=== PATIENT | male | born 1990 | race Caucasian/White ===

== ENCOUNTER → 2025-03-08 12:41 | Outpatient (CLI) | payer OTHER, SELFPAY ==
--- NOTE | 2025-03-08 12:45 | DI.MRI.S_ITS ---
PROCEDURE: MR KNEE LT WO CON INDICATIONS: injury lower leg left TECHNIQUE: Noncontrast sagittal PD fast spin echo and T2 fast spin echo with fat saturation, sagittal 3-D FLASH with fat saturation; coronal T1 spin echo and PD fast spin echo with fat saturation, and axial PD fast spin echo with fat saturation through the knee. COMPARISON: None. FINDINGS: Image quality: Excellent. Some images are mildly limited by motion, pulsation artifacts, decreased [id number]. Medial structures: Markedly abnormal appearance medially with moderate to severe diffuse soft tissue edema surrounding the medial collateral ligament and distal pes anserine tendons. The distal attachment of the medial collateral ligament is not clearly defined and may be torn given the amount of edema within and surrounding the medial collateral ligament, grade 2 possible grade 3 injury. Associated edema of the posterior oblique ligament and in the distal semimembranosus tendon injury/strain without retraction. Suspicion of posterior medial meniscocapsular separation. Menisci: The medial and lateral menisci demonstrate normal morphology and internal signal without focal tear. Cruciate ligaments: The anterior and posterior cruciate ligaments appear intact. Lateral structures: The lateral collateral ligament, long and short heads of the biceps femoris tendon appear intact. The popliteus tendon appears normal. Iliotibial band appears normal. Anterior structures: The quadriceps and patellar tendons appear intact. Patellar alignment is normal. No femoral trochlear dysplasia or ventral trochlear prominence. No edema in the infrapatellar fat pad. Bones and cartilage: Moderate low T1 high T2 signal in the lateral aspect of the lateral femoral condyle suspicious for bone contusion. No gross fracture line or dislocation. The cartilage of the medial and lateral femorotibial compartments, as well as the patellofemoral compartment, appears normal in thickness. Joint space: Mild knee joint effusion. No popliteal cyst. IMPRESSION: Abnormal appearance medially with edema surrounding the medial collateral ligament and pes anserine tendons suspicious for grade 2 possible grade 3 injury as discussed above. Injury/strain of the distal semimembranosus tendon and posterior oblique ligament. Mild knee joint effusion. Bone contusion lateral femoral condyle. Dictated by: Joss Fowler M.D. on 03/10/2025 at 14:08 Approved by: Joss Fowler M.D. on 03/10/2025 at 14:31
== END ==
DX: S80.02XA Contusion of left knee, initial encounter (principal); S76.812A Strain of other specified muscles, fascia and tendons at thigh level, left thigh, initial encounter; M25.462 Effusion, left knee; S89.90XA Unspecified injury of unspecified lower leg, initial encounter; X58.XXXA Exposure to other specified factors, initial encounter
CPT/HCPCS: 73721